=== PATIENT | male | born 1990 | race Caucasian/White ===

== ENCOUNTER 2021-07-19 18:20 | Inpatient (IN) | payer OTHER ==
[2021-07-19 20:08] VITALS: BMI 27.4
[2021-07-19] MEDS ORDERED: IBUPROFEN 400 MG TABLET (FP) PO PRN (20:52)
[2021-07-19] MEDS ORDERED: BISMUTH SUBSALICYLATE 524 MG/30 ML PO PRN (20:52)
[2021-07-19] MEDS ORDERED: MAGNESIUM CITRATE 300 ML BOTTLE PO PRN (20:52)
[2021-07-19] MEDS ORDERED: ACETAMINOPHEN 325 MG TABLET (FP) PO PRN ×2 (20:52)
[2021-07-19] MEDS ORDERED: MAGNESIUM HYDROX 2400MG/30ML ORAL SUSPENSION 30 ML CUP PO PRN (20:52)
[2021-07-19] MEDS ORDERED: MENTHOL/PHENOL 1 EACH UD MM PRN (20:52)
[2021-07-19] MEDS ORDERED: ONDANSETRON *ODT* 4 MG TABLET SL PRN (20:52)
[2021-07-19] MEDS ORDERED: MAG HYDROX/AL HYDROX/SIMETH 30 ML UNIT-DOSE CUP PO PRN (20:52)
[2021-07-19] MEDS ORDERED: chlordiazePOXIDE HCL 25 MG CAPSULE PO ONE (20:54)
[2021-07-19] MEDS ORDERED: chlordiazePOXIDE HCL 25 MG CAPSULE PO PRN (20:54)
[2021-07-19] MEDS ORDERED: chlordiazePOXIDE HCL 25 MG CAPSULE ONE (22:00)
[2021-07-19] MEDS: levETIRAcetam 500 MG TABLET (FP) PO SCH (22:02)
[2021-07-19] MEDS: OXcarbazepine 300 MG TABLET (UD) PO SCH (22:02)
[2021-07-19] MEDS: THIAMINE HCL 100 MG TABLET (FP) PO SCH (22:03)
[2021-07-20] MEDS: chlordiazePOXIDE HCL 25 MG CAPSULE PO SCH ×5 (00:40→22:08)
[2021-07-20 10:33] LABS: HEMATOCRIT 40.5 % (35.4-49); HEMOGLOBIN 14.1 GM/dL (11.7-16.9); MCH 31.7 pg (25.7-33.7); MCHC 34.7 g/dl (32.0-35.9); MEAN CELL VOLUME 91.4 fl (80-96); MEAN PLT VOLUME 7.1 fl (7.5-11.1); PLATELET COUNT 250 10^3/uL (134-434); RBC 4.43 M/mm3 (4.00-5.60); RDW 12.8 % (11.9-15.9); WHITE BLOOD COUNT 6.7 K/mm3 (4.0-10.0)
[2021-07-20] MEDS: levETIRAcetam 500 MG TABLET (FP) PO SCH ×2 (10:33→22:08)
[2021-07-20] MEDS: OXcarbazepine 300 MG TABLET (UD) PO SCH ×2 (10:36→22:08)
[2021-07-20] MEDS: PRENATAL VITAMINS W/ FOLIC ACID TABLET (FP) PO SCH (10:36)
[2021-07-20 10:48] LABS: ALBUMIN 3.7 g/dl (3.4-5.0); BLOOD UREA NITROGEN 10.5 mg/dL (7-18); CALCIUM 9.3 mg/dL (8.5-10.1)
[2021-07-20 10:51] LABS: CREATININE 1.1 mg/dL (0.55-1.3)
[2021-07-20 10:53] LABS: BILIRUBIN,TOTAL 0.4 mg/dL (0.2-1); TOT PROT 6.9 g/dl (6.4-8.2)
[2021-07-20] MEDS: NICOTINE 21 MG/24 HOURS TOPICAL PATCH TD SCH (13:42)
[2021-07-20] MEDS: hydrOXYzine PAMOATE 25 MG CAPSULE (FP) PO PRN ×2 (17:53→22:08)
[2021-07-20] MEDS: THIAMINE HCL 100 MG TABLET (FP) PO SCH (22:08)
[2021-07-20] MEDS: MELATONIN 5 MG TABLETS PO PRN (22:09)
[2021-07-21] MEDS: chlordiazePOXIDE HCL 25 MG CAPSULE PO SCH ×4 (05:24→22:12)
[2021-07-21] MEDS: PRENATAL VITAMINS W/ FOLIC ACID TABLET (FP) PO SCH (10:11)
[2021-07-21] MEDS: levETIRAcetam 500 MG TABLET (FP) PO SCH ×2 (10:11→22:12)
[2021-07-21] MEDS: OXcarbazepine 300 MG TABLET (UD) PO SCH ×2 (10:11→22:12)
[2021-07-21] MEDS: NICOTINE 21 MG/24 HOURS TOPICAL PATCH TD SCH (10:14)
[2021-07-21] MEDS: hydrOXYzine PAMOATE 25 MG CAPSULE (FP) PO PRN ×2 (17:32→22:12)
[2021-07-21] MEDS: THIAMINE HCL 100 MG TABLET (FP) PO SCH (22:12)
[2021-07-21] MEDS: MELATONIN 5 MG TABLETS PO PRN (22:13)
[2021-07-22] MEDS ORDERED: chlordiazePOXIDE HCL 10 MG CAPSULE PO PRN
[2021-07-22] MEDS: chlordiazePOXIDE HCL 10 MG CAPSULE PO SCH ×4 (05:36→22:40)
[2021-07-22] MEDS: levETIRAcetam 500 MG TABLET (FP) PO SCH ×2 (10:41→22:40)
[2021-07-22] MEDS: PRENATAL VITAMINS W/ FOLIC ACID TABLET (FP) PO SCH (10:41)
[2021-07-22] MEDS: OXcarbazepine 300 MG TABLET (UD) PO SCH ×2 (10:41→22:40)
[2021-07-22] MEDS: NICOTINE 21 MG/24 HOURS TOPICAL PATCH TD SCH (10:42)
[2021-07-22] MEDS: METHOCARBAMOL 500 MG TABLET PO PRN ×2 (10:43→22:40)
[2021-07-22] MEDS: hydrOXYzine PAMOATE 25 MG CAPSULE (FP) PO PRN ×2 (17:52→22:40)
[2021-07-22] MEDS: THIAMINE HCL 100 MG TABLET (FP) PO SCH (23:27)
[2021-07-23] MEDS: chlordiazePOXIDE HCL 10 MG CAPSULE PO SCH ×2 (06:54→18:03)
[2021-07-23] MEDS: PRENATAL VITAMINS W/ FOLIC ACID TABLET (FP) PO SCH (10:18)
[2021-07-23] MEDS: hydrOXYzine PAMOATE 25 MG CAPSULE (FP) PO PRN ×2 (10:18→22:11)
[2021-07-23] MEDS: levETIRAcetam 500 MG TABLET (FP) PO SCH ×2 (10:18→22:10)
[2021-07-23] MEDS: OXcarbazepine 300 MG TABLET (UD) PO SCH ×2 (10:18→22:11)
[2021-07-23] MEDS: NICOTINE 21 MG/24 HOURS TOPICAL PATCH TD SCH (10:19)
[2021-07-23] MEDS ORDERED: cloNIDine HCL 0.1 MG TABLET PO PRN (11:58)
[2021-07-23] MEDS: MELATONIN 5 MG TABLETS PO PRN (22:10)
[2021-07-23] MEDS: THIAMINE HCL 100 MG TABLET (FP) PO SCH (22:10)
[2021-07-23] MEDS: METHOCARBAMOL 500 MG TABLET PO PRN (22:12)
[2021-07-24] MEDS ORDERED: chlordiazePOXIDE HCL 10 MG CAPSULE PO ONE (05:00)
[2021-07-24 09:08] VITALS: BP 148/103; PULSE 107; TEMP 96.8
[2021-07-24] MEDS: PRENATAL VITAMINS W/ FOLIC ACID TABLET (FP) PO SCH (09:26)
[2021-07-24] MEDS: OXcarbazepine 300 MG TABLET (UD) PO SCH (09:26)
[2021-07-24] MEDS: NICOTINE 21 MG/24 HOURS TOPICAL PATCH TD SCH (09:27)
[2021-07-24] MEDS: levETIRAcetam 500 MG TABLET (FP) PO SCH (09:28)
[2021-07-24] MEDS: METHOCARBAMOL 500 MG TABLET PO PRN (09:29)
[2021-07-24] MEDS: hydrOXYzine PAMOATE 25 MG CAPSULE (FP) PO PRN (09:29)
== END 2021-07-24 10:25 | disposition other institution (70) | DRG 776 ==
LOC: YASAS 18:20 → Y3N 07-20 00:15
PROVIDERS: ADMIT Allergy & Immunology; ATTEND Allergy & Immunology
PROC: HZ2ZZZZ Detoxification Services for Substance Abuse Treatment (ICD-10-PCS; principal; 2021-07-20)
DX: F13.230 Sedative, hypnotic or anxiolytic dependence with withdrawal, uncomplicated (principal); F19.24 Other psychoactive substance dependence with psychoactive substance-induced mood disorder; E87.1 Hypo-osmolality and hyponatremia; G40.909 Epilepsy, unspecified, not intractable, without status epilepticus; R03.0 Elevated blood-pressure reading, without diagnosis of hypertension; Z72.0 Tobacco use
CPT/HCPCS: 36415; 80053; 85027; 86780; C9803; U0003; U0005